=== PATIENT | female | born 1990 | race Caucasian/White ===

== ENCOUNTER 2020-09-28 00:09 | Inpatient (IN) | payer OTHER ==
[2020-09-28 01:25] LABS: Anisocytosis Slight; Basophils % (A) 1 %; Eosinophils % (A) 1 %; HCT 25.3 % (34.0-46.0); HGB 8.8 gm/dL (11.4-16.0); Hypochromasia Slight; Lymphocytes # (A) 0.9 k/uL (1.0-4.8); Lymphocytes % (A) 22 %; MCH 36.5 pg (25.0-35.0); MCHC 34.9 g/dL (31.0-37.0); MCV 104.6 fL (80.0-100.0); Macrocytosis Moderate; Mean Platelet Volume 8.6; Monocytes # (A) 0.4 k/uL (0-1.0); Monocytes % (A) 9 %; Neutrophils # (A) 2.8 k/uL (1.3-7.7); Neutrophils % (A) 65 %; Platelet Count 174 k/uL (150-450); RBC 2.42 m/uL (3.80-5.40); RDW 17.7 % (11.5-15.5); WBC 4.4 k/uL (3.8-10.6)
[2020-09-28 01:37] LABS: Potassium 3.9 mmol/L (3.5-5.1)
[2020-09-28 01:38] LABS: ALT 34 U/L (4-34); AST 220 U/L (14-36); African American GFR (CKD) >90 (>60 ml/min/1.73 sqM); Albumin 3.2 g/dL (3.5-5.0); Alkaline Phosphatase 215 U/L (38-126); Amylase 70 U/L (30-110); Anion Gap 7 mmol/L; Blood Urea Nitrogen 6 mg/dL (7-17); Calcium 8.7 mg/dL (8.4-10.2); Carbon Dioxide 24 mmol/L (22-30); Chloride 105 mmol/L (98-107); Glucose 108 mg/dL (74-99); Lipase 348 U/L (23-300); Non-African American GFR(CKD) >90 (>60 ml/min/1.73 sqM); Sodium 136 mmol/L (137-145); Total Bilirubin 4.7 mg/dL (0.2-1.3); Total Protein 6.3 g/dL (6.3-8.2)
[2020-09-28 01:42] LABS: INR 1.5 (<1.2); Partial Thromboplastin Time 34.5 sec (22.0-30.0)
[2020-09-28 01:47] LABS: Appearance,Urine Cloudy (Clear); Bacteria,Urine Rare /hpf; Bilirubin,Urine 1+ (Negative); Blood,Urine Negative (Negative); Calcium Oxalate Crystals,Urine Few /hpf; Color,Urine Dark Yellow; Glucose,Urine (UA) Negative (Negative); Ketones,Urine Negative (Negative); Leukocyte Esterase,Urine Trace (Negative); Mucus,Urine Few /hpf; Nitrite,Urine Negative (Negative); PH, Urine 6.5 (5.0-8.0); Protein,Urine Trace (Negative); RBC,Urine 5 /hpf (0-5); Specific Gravity,Urine 1.023 (1.001-1.035); Squamous Epithelial Cell,Urine 2 /hpf (0-4); WBC,Urine 10 /hpf (0-5)
--- NOTE | 2020-09-28 02:03 | XR ---
EXAM: XR Chest, 2 Views CLINICAL HISTORY: ITS.REASON XR Reason: dyspnea TECHNIQUE: Frontal and lateral views of the chest. COMPARISON: No relevant prior studies available. FINDINGS: Lungs: See below. Pleural space: There is slight blunting of the left costophrenic angle which may represent small left pleural effusion and questionable left basilar infiltrate. No pneumothorax. Heart: Unremarkable. No cardiomegaly. Mediastinum: Unremarkable. Bones/joints: Unremarkable. IMPRESSION: There is slight blunting of the left costophrenic angle which may represent small left pleural effusion and questionable left basilar infiltrate.
--- NOTE | 2020-09-28 02:07 | US ---
EXAM: US Abdomen Limited, Gallbladder CLINICAL HISTORY: ITS.REASON US Reason: jaundice new onset TECHNIQUE: Real-time ultrasound of the right upper quadrant with image documentation. COMPARISON: No relevant prior studies available. FINDINGS: Liver: Fatty infiltration of the liver and hepatomegaly with the liver measuring 20 cm craniocaudad. No intrahepatic biliary duct dilation is seen. Gallbladder: The gallbladder is fully distended but nondilated. There is a layer of sludge in the dependent portion of the gallbladder filling 60%. No calcified stones are identified. There is mild gallbladder wall thickening suggesting cholecystitis. Common bile duct: The common bile duct is obscured. Pancreas: The visualized portion of the pancreas is unremarkable. Right kidney: The right kidney measures 11.9 cm with normal appearance. No hydronephrosis. IMPRESSION: 1. The gallbladder is fully distended but nondilated. There is a layer of sludge in the dependent portion of the gallbladder filling 60%. No calcified stones are identified. There is mild gallbladder wall thickening suggesting cholecystitis. 2. Fatty infiltration of the liver and hepatomegaly with the liver measuring 20 cm craniocaudad. No intrahepatic biliary duct dilation is seen.
[2020-09-28] MEDS ORDERED: THIAMINE 100 MG/ML 2 ML VIAL IM STA (02:18)
[2020-09-28] MEDS ORDERED: LORazepam 2 MG/ML INJ IV PRN ×3 (02:18)
--- NOTE | 2020-09-28 02:32 | ED ---
Abdominal Pain HPI - General Chief Complaint: Abdominal Pain Stated Complaint: Abdominal pain Time Seen by Provider: 09/28/20 00:32 Source: patient Mode of arrival: EMS Limitations: no limitations - History of Present Illness Initial Comments: 30-year-old female presenting to the emergency department today for chief complaint of jaundice right upper quadrant abdominal pain. Patient states that she has been at [facility] for 11 days for a call detox. She states she was appears to drinking for a few weeks ago today but prior to that half gallon a d ay for months and prior to that about a fifth a day for "years". Patient states that for the past day she has had RUQ pain and noticed she looked yellow. She dneies fevers, vomiting, diarrhea. but admits to nausea. Patient denies blood stools/vomit or dark stools. Patient denies chest pain, dyspnea. Patient states she does feel her abdomen is distended and both of her legs are swollen. SHe denies additional complaints. Upon arrival patient appears well nontoxic in no acute distress. - Related Data Home Medications Medication Instructions Recorded Confirmed Calcium/Magnesium Tab 2 tab PO TID PRN 09/28/20 09/28/20 Chlorpheniramine Maleate 4 mg PO Q4H PRN 09/28/20 09/28/20 [Chlor-Trimeton] Ferrous Gluconate 324 mg PO DAILY@0600 09/28/20 09/28/20 LORazepam [Ativan] See Taper PO DIRECTED PRN 09/28/20 09/28/20 OLANZapine [ZyPREXA] 2.5 mg PO HS 09/28/20 09/28/20 ondansetron HCL [Zofran] 8 mg PO Q8HR PRN 09/28/20 09/28/20 traZODone HCL 50 - 150 mg PO HS 09/28/20 09/28/20 Allergies Allergy/AdvReac Type Severity Reaction Status Date / Time No Known Allergies Allergy Verified 09/28/20 06:58 Review of Systems ROS Statement: Those systems with pertinent positive or pertinent negative responses have been documented in the HPI. ROS Other: All systems not noted in ROS Statement are negative. Past Medical History Past Medical History: Liver Disease Additional Past Medical History / Comment(s): etoh abuse, History of Any Multi-Drug Resistant Organisms: None Reported Past Surgical History: Orthopedic Surgery Past Psychological History: Anxiety, Depression Smoking Status: Current every day smoker Past Alcohol Use History: Abuse, Daily Past Drug Use History: None Reported - Past Family History Father Family Medical History: Coronary Artery Disease (CAD), Hyperlipidemia, Myocardial Infarction ([place]) Additional Family Medical History / Comment(s): Father at the age of 55 yrs from a [place] Mother Family Medical History: No Reported History Additional Family Medical History / Comment(s): Mother is healthy General Exam - General Exam Comments Initial Comments: General: The patient is awake and alert, in no distress Eye: +3 mm pupils are equal, round and reactive to light, extra-ocular movements are intact. No nystagmus. There is normal conjunctiva bilaterally.signs of icterus. Ears, nose, mouth and throat: There are moist mucous membranes and no oral lesions. Neck: The neck is supple, there is no tenderness or JVD. Cardiovascular: There is a regular rate and rhythm. No murmur, rub or gallop is appreciated. Respiratory: Lungs are clear to auscultation, respirations are non-labored, breath sounds are equal. No wheezes, stridor, rales, or rhonchi. Gastrointestinal: Soft, non-distended, tender epigastric and RUQ portions of the abdomen, abdomen is without masses or organomegaly noted. There is no rebound or guarding prese Musculoskeletal: Normal ROM, no tenderness. Strength 5/5. Sensation intact. Radial and DP pulses equal bilaterally 2+. Neurological: A&O x 3. CN II-XII intact grossly, There are no obvious motor or sensory deficits. Coordination appears grossly intact. Speech is normal. Skin: Skin is warm and dry and no rashes or lesions are noted. Psychiatric: Cooperative, appropriate mood & affect, normal judgment. Limitations: no limitations Course Vital Signs 09/28/20 09/28/20 00:14 02:15 Temperature 98.8 F Pulse Rate 117 H 108 H Respiratory 18 18 Rate Blood Pressure 114/57 106/51 O2 Sat by Pulse 100 98 Oximetry Medical Decision Making - Medical Decision Making 30-year-old female presenting for right upper quadrant pain and jaundice. Patient has cholecystitis on ultrasound. As well as transaminitis increased bilirubin. Patient does not appear toxic. no vomiting. no hypotension. patient does have pitting edema and suspected cirrhosis. patietn case discussed with Dr. Mensah who is agreeable to initiated abx, admitting patient for surgical consultation. - Lab Data Result diagrams: 09/28/20 01:00 09/28/20 01:00 Lab Results 09/28/20 09/28/20 09/28/20 Range/Units 01:00 01:00 01:00 WBC 4.4 (3.8-10.6) k/uL RBC 2.42 L (3.80-5.40) m/uL Hgb 8.8 L (11.4-16.0) gm/dL Hct 25.3 L (34.0-46.0) % MCV 104.6 H (80.0-100.0) fL MCH 36.5 H (25.0-35.0) pg MCHC 34.9 (31.0-37.0) g/dL RDW 17.7 H (11.5-15.5) % Plt Count 174 (150-450) k/uL MPV 8.6 Neutrophils % 65 % Lymphocytes % 22 % Monocytes % 9 % Eosinophils % 1 % Basophils % 1 % Neutrophils # 2.8 (1.3-7.7) k/uL Lymphocytes # 0.9 L (1.0-4.8) k/uL Monocytes # 0.4 (0-1.0) k/uL Eosinophils # 0.0 (0-0.7) k/uL Basophils # 0.0 (0-0.2) k/uL Hypochromasia Slight Anisocytosis Slight Macrocytosis Moderate PT 15.0 H (9.0-12.0) sec INR 1.5 H (<1.2) APTT 34.5 H (22.0-30.0) sec Sodium (137-145) mmol/L Potassium (3.5-5.1) mmol/L Chloride (98-107) mmol/L Carbon Dioxide (22-30) mmol/L Anion Gap mmol/L BUN (7-17) mg/dL Creatinine (0.52-1.04) mg/dL Est GFR (CKD-EPI)AfAm (>60 ml/min/1.73 sqM) Est GFR (CKD-EPI)NonAf (>60 ml/min/1.73 sqM) Glucose (74-99) mg/dL Plasma Lactic Acid Ghanshyam (0.7-2.0) mmol/L Calcium (8.4-10.2) mg/dL Magnesium (1.6-2.3) mg/dL Total Bilirubin (0.2-1.3) mg/dL AST (14-36) U/L ALT (4-34) U/L Alkaline Phosphatase (38-126) U/L Troponin I (0.000-0.034) ng/mL NT-Pro-B Natriuret Pep pg/mL Total Protein (6.3-8.2) g/dL Albumin (3.5-5.0) g/dL Amylase (30-110) U/L Lipase (23-300) U/L Urine Color Dark Yellow Urine Appearance Cloudy H (Clear) Urine pH 6.5 (5.0-8.0) Ur Specific [place] 1.023 (1.001-1.035) Urine Protein Trace H (Negative) Urine Glucose (UA) Negative (Negative) Urine Ketones Negative (Negative) Urine Blood Negative (Negative) Urine Nitrite Negative (Negative) Urine Bilirubin 1+ H (Negative) Urine Urobilinogen 2.0 (<2.0) mg/dL Ur Leukocyte Esterase Trace H (Negative) Urine RBC 5 (0-5) /hpf Urine WBC 10 H (0-5) /hpf Ur Squamous Epith Cells 2 (0-4) /hpf Calcium Oxalate Crystal Few H (None) /hpf Urine Bacteria Rare H (None) /hpf Urine Mucus Few H (None) /hpf Hepatitis A IgM Ab (Non-Reactive) Hep Bs Antigen (Non-Reactive) Hep B Core IgM Ab (Non-Reactive) Hep C IgG Ab (Non-Reactive) 09/28/20 09/28/20 09/28/20 Range/Units 01:00 01:00 01:00 WBC (3.8-10.6) k/uL RBC (3.80-5.40) m/uL Hgb (11.4-16.0) gm/dL Hct (34.0-46.0) % MCV (80.0-100.0) fL MCH (25.0-35.0) pg MCHC (31.0-37.0) g/dL RDW (11.5-15.5) % Plt Count (150-450) k/uL MPV Neutrophils % % Lymphocytes % % Monocytes % % Eosinophils % % Basophils % % Neutrophils # (1.3-7.7) k/uL Lymphocytes # (1.0-4.8) k/uL Monocytes # (0-1.0) k/uL Eosinophils # (0-0.7) k/uL Basophils # (0-0.2) k/uL Hypochromasia Anisocytosis Macrocytosis PT (9.0-12.0) sec INR (<1.2) APTT (22.0-30.0) sec Sodium 136 L (137-145) mmol/L Potassium 3.9 (3.5-5.1) mmol/L Chloride 105 (98-107) mmol/L Carbon Dioxide 24 (22-30) mmol/L Anion Gap 7 mmol/L BUN 6 L (7-17) mg/dL Creatinine 0.55 (0.52-1.04) mg/dL Est GFR (CKD-EPI)AfAm >90 (>60 ml/min/1.73 sqM) Est GFR (CKD-EPI)NonAf >90 (>60 ml/min/1.73 sqM) Glucose 108 H (74-99) mg/dL Plasma Lactic Acid Ghanshyam 1.2 (0.7-2.0) mmol/L Calcium 8.7 (8.4-10.2) mg/dL Magnesium (1.6-2.3) mg/dL Total Bilirubin 4.7 H (0.2-1.3) mg/dL AST 220 H (14-36) U/L ALT 34 (4-34) U/L Alkaline Phosphatase 215 H (38-126) U/L Troponin I <0.012 (0.000-0.034) ng/mL NT-Pro-B Natriuret Pep pg/mL Total Protein 6.3 (6.3-8.2) g/dL Albumin 3.2 L (3.5-5.0) g/dL Amylase 70 (30-110) U/L Lipase 348 H (23-300) U/L Urine Color Urine Appearance (Clear) Urine pH (5.0-8.0) Ur Specific B[place] (1.001-1.035) Urine Protein (Negative) Urine Glucose (UA) (Negative) Urine Ketones (Negative) Urine Blood (Negative) Urine Nitrite (Negative) Urine Bilirubin (Negative) Urine Urobilinogen (<2.0) mg/dL Ur Leukocyte Esterase (Negative) Urine RBC (0-5) /hpf Urine WBC (0-5) /hpf Ur Squamous Epith Cells (0-4) /hpf Calcium Oxalate Crystal (None) /hpf Urine Bacteria (None) /hpf Urine Mucus (None) /hpf Hepatitis A IgM Ab (Non-Reactive) Hep Bs Antigen (Non-Reactive) Hep B Core IgM Ab (Non-Reactive) Hep C IgG Ab (Non-Reactive) 09/28/20 09/28/20 09/28/20 Range/Units 01:00 01:00 01:00 WBC (3.8-10.6) k/uL RBC (3.80-5.40) m/uL Hgb (11.4-16.0) gm/dL Hct (34.0-46.0) % MCV (80.0-100.0) fL MCH (25.0-35.0) pg MCHC (31.0-37.0) g/dL RDW (11.5-15.5) % Plt Count (150-450) k/uL MPV Neutrophils % % Lymphocytes % % Monocytes % % Eosinophils % % Basophils % % Neutrophils # (1.3-7.7) k/uL Lymphocytes # (1.0-4.8) k/uL Monocytes # (0-1.0) k/uL Eosinophils # (0-0.7) k/uL Basophils # (0-0.2) k/uL Hypochromasia Anisocytosis Macrocytosis PT (9.0-12.0) sec INR (<1.2) APTT (22.0-30.0) sec Sodium (137-145) mmol/L Potassium (3.5-5.1) mmol/L Chloride (98-107) mmol/L Carbon Dioxide (22-30) mmol/L Anion Gap mmol/L BUN (7-17) mg/dL Creatinine (0.52-1.04) mg/dL Est GFR (CKD-EPI)AfAm (>60 ml/min/1.73 sqM) Est GFR (CKD-EPI)NonAf (>60 ml/min/1.73 sqM) Glucose (74-99) mg/dL Plasma Lactic Acid Ghanshyam (0.7-2.0) mmol/L Calcium (8.4-10.2) mg/dL Magnesium 1.9 (1.6-2.3) mg/dL Total Bilirubin (0.2-1.3) mg/dL AST (14-36) U/L ALT (4-34) U/L Alkaline Phosphatase (38-126) U/L Troponin I (0.000-0.034) ng/mL NT-Pro-B Natriuret Pep 226 pg/mL Total Protein (6.3-8.2) g/dL Albumin (3.5-5.0) g/dL Amylase (30-110) U/L Lipase (23-300) U/L Urine Color Urine Appearance (Clear) Urine pH (5.0-8.0) Ur Specific B[place] (1.001-1.035) Urine Protein (Negative) Urine Glucose (UA) (Negative) Urine Ketones (Negative) Urine Blood (Negative) Urine Nitrite (Negative) Urine Bilirubin (Negative) Urine Urobilinogen (<2.0) mg/dL Ur Leukocyte Esterase (Negative) Urine RBC (0-5) /hpf Urine WBC (0-5) /hpf Ur Squamous Epith Cells (0-4) /hpf Calcium Oxalate Crystal (None) /hpf Urine Bacteria (None) /hpf Urine Mucus (None) /hpf Hepatitis A IgM Ab Non-Reactive (Non-Reactive) Hep Bs Antigen Non-Reactive (Non-Reactive) Hep B Core IgM Ab Non-Reactive (Non-Reactive) Hep C IgG Ab Non-Reactive (Non-Reactive) Disposition Clinical Impression: Cirrhosis, Cholecystitis, Edema, Abdominal pain, Hepatitis Disposition: ADMITTED IP TO THIS HOSP Condition: Stable Is patient prescribed a controlled substance at d/c from ED?: No Time of Disposition: Decision to Admit Reason: Admit from EC Decision Date: 09/28/20 Decision Time: :32
[2020-09-28] MEDS: PIPERACILLIN-TAZOBACTAM 3.375 GM in SODIUM CHLORIDE 0.9% 100 ML IVPB SCH ×3 (02:41→17:29)
[2020-09-28] MEDS ORDERED: NALOXONE 0.4 MG/ML 1 ML VIAL IV PRN (03:03)
[2020-09-28] MEDS: KETOROLAC 15 MG/ML 1 ML VIAL IVP PRN ×2 (13:08→19:15)
[2020-09-28] MEDS: NICOTINE 14MG/24HR PATCH TRANSDERM SCH (13:08)
[2020-09-28 13:46] LABS: Hepatitis A Antibody IgM Non-Reactive (Non-Reactive); Hepatitis B Core IgM Non-Reactive (Non-Reactive); Hepatitis B Surface Antigen Non-Reactive (Non-Reactive); Hepatitis C IgG Antibody Non-Reactive (Non-Reactive)
--- NOTE | 2020-09-28 14:20 | P.GSCN ---
History of Present Illness Consult date: 09/28/20 History of present illness: CHIEF COMPLAINT: Abdominal pain HISTORY OF PRESENT ILLNESS: This is a 30-year-old female with a known past medical history of alcohol abuse, liver disease, nicotine dependence, anxiety and depression. Patient presents to emergency room with complaints of right upper quadrant abdominal pain over the last 2 months. She reports that the pain is worse after eating. The pain yesterday became very severe that she couldn't move. The pain radiates down into the lower abdomen and wraps around to the the right and to the left abductor abdomen. She had been having nausea and vomiting. But this had resolved after she stopped drinking alcohol 11 a days ago. She's been at [facility] for detox and rehab. Patient has noticed that her stools have been becoming yellow and she's been having dark urine. She denies any fever. She does admit to having chills. She had gallbladder ultrasound that showed that the gallbladder is fully distended. There is a layer of sludge in the dependent portion of the gallbladder filling 60%. No calcified stones identified. There is mild gallbladder wall thickening suggesting cystitis. Fatty infiltration of the liver and hepatomegaly with the liver measuring 20 cm. No intrahepatic biliary duct dilation is seen. Patient's total bilirubin was elevated at 4.7. PAST MEDICAL HISTORY: See list. PAST SURGICAL HISTORY: See list. MEDICATIONS: See list. ALLERGIES: See list. SOCIAL HISTORY: No illicit drug use. REVIEW OF SYSTEMS: CONSTITUTIONAL: Denies fever or chills. HEENT: Denies blurred vision, vision changes, or eye pain. Denies hemoptysis CARDIOVASCULAR: Denies chest pain or pressure. RESPIRATORY: No shortness of breath. GASTROINTESTINAL: See HPI for pertinent findings HEMATOLOGIC: Denies bleeding disorders. GENITOURINARY: Denies any blood in urine or increased urinary frequency. SKIN: Denies pruitis. Denies rash. PHYSICAL EXAM: VITAL SIGNS: Reviewed GENERAL: Well-developed in no acute distress. HEENT: No sclera icterus. Extraocular movements grossly intact. Moist buccal mucosa. Head is atraumatic, normocephalic. No nasal drainage. ABDOMEN: Soft. Nondistended. Tenderness with palpation of the right upper quadrant NEUROLOGIC: Alert and oriented. Cranial nerves II through XII grossly intact. LABORATORY DATA: WBC 4.4 Hgb 8.8 platelets 174 INR 1.5 sodium 136 BUN 6 creatinine 0.55 glucose 108 lactic 1.2 Total bilirubin 4.7 AST 220 ALT 34 alk phos 215 lipase 348 Covid Not detected hepatitis panel negative IMAGING: gallbladder ultrasound that showed that the gallbladder is fully distended. There is a layer of sludge in the dependent portion of the gallbladder filling 60%. No calcified stones identified. There is mild gallbladder wall thickening suggesting cystitis. Fatty infiltration of the liver and hepatomegaly with the liver measuring 20 cm. No intrahepatic biliary duct dilation is seen. ASSESSMENT: 1. Acute cholecystitis 2. Hyperbilirubinemia 3. History of alcohol abuse 4. History of liver disease PLAN: -Patient is scheduled for laparoscopic cholecystectomy tomorrow 09/29/[address] Engle -Patient can have clear liquid diet today and then nothing by mouth after midnight -Continue IV antibiotics -Continue IV fluids -Continue pain medication as needed Thank you for this consultation Physician Systems Architecture Analyst note has been reviewed by physician. Signing provider agrees with the documented findings, assessment, and plan of care. Past Medical History Past Medical History: GERD/Reflux, Liver Disease Additional Past Medical History / Comment(s): ETOH abuse/pt is currently at [facility] and has not drank in 11 days, ETOH withdrawals/headac hes/vomiting/tremors, frequent diarrhea, lower leg/pedal edema past 1.5 months, UTIs History of Any Multi-Drug Resistant Organisms: None Reported Past Surgical History: Orthopedic Surgery Additional Past Surgical History / Comment(s): R foot fractured calcaneous with reconstructive surgery/hardware, R femur fracture/hardware. Smoking Status: Current every day smoker - Past Family History Father Family Medical History: Coronary Artery Disease (CAD), Hyperlipidemia, Myocardial Infarction ([place]) Additional Family Medical History / Comment(s): Father at the age of 55 yrs from a [place] Mother Family Medical History: No Reported History Additional Family Medical History / Comment(s): Mother is healthy Medications and Allergies Home Medications Medication Instructions Recorded Confirmed Type Calcium/Magnesium Tab 2 tab PO TID PRN 09/28/20 09/28/20 History Chlorpheniramine Maleate 4 mg PO Q4H PRN 09/28/20 09/28/20 History [Chlor-Trimeton] Ferrous Gluconate 324 mg PO DAILY@0600 09/28/20 09/28/20 History LORazepam [Ativan] See Taper PO DIRECTED PRN 09/28/20 09/28/20 History OLANZapine [ZyPREXA] 2.5 mg PO HS 09/28/20 09/28/20 History ondansetron HCL [Zofran] 8 mg PO Q8HR PRN 09/28/20 09/28/20 History traZODone HCL 50 - 150 mg PO HS 09/28/20 09/28/20 History Allergies Allergy/AdvReac Type Severity Reaction Status Date / Time No Known Allergies Allergy Verified 09/28/20 06:58 Surgical - Exam Vital Signs Temp Pulse Resp BP Pulse Ox 98.8 F 117 H 18 114/57 100 09/28/20 00:14 09/28/20 00:14 09/28/20 00:14 09/28/20 00:14 09/28/20 00:14 Results - Labs 09/28/20 01:00 09/28/20 01:00 Abnormal Lab Results - Last 24 Hours (Table) 09/28/20 09/28/20 09/28/20 Range/Units 01:00 01:00 01:00 RBC 2.42 L (3.80-5.40) m/uL Hgb 8.8 L (11.4-16.0) gm/dL Hct 25.3 L (34.0-46.0) % MCV 104.6 H (80.0-100.0) fL MCH 36.5 H (25.0-35.0) pg RDW 17.7 H (11.5-15.5) % Lymphocytes # 0.9 L (1.0-4.8) k/uL PT 15.0 H (9.0-12.0) sec INR 1.5 H (<1.2) APTT 34.5 H (22.0-30.0) sec Sodium (137-145) mmol/L BUN (7-17) mg/dL Glucose (74-99) mg/dL Total Bilirubin (0.2-1.3) mg/dL AST (14-36) U/L Alkaline Phosphatase (38-126) U/L Albumin (3.5-5.0) g/dL Lipase (23-300) U/L Urine Appearance Cloudy H (Clear) Urine Protein Trace H (Negative) Urine Bilirubin 1+ H (Negative) Ur Leukocyte Esterase Trace H (Negative) Urine WBC 10 H (0-5) /hpf Calcium Oxalate Crystal Few H (None) /hpf Urine Bacteria Rare H (None) /hpf Urine Mucus Few H (None) /hpf 09/28/20 Range/Units 01:00 RBC (3.80-5.40) m/uL Hgb (11.4-16.0) gm/dL Hct (34.0-46.0) % MCV (80.0-100.0) fL MCH (25.0-35.0) pg RDW (11.5-15.5) % Lymphocytes # (1.0-4.8) k/uL PT (9.0-12.0) sec INR (<1.2) APTT (22.0-30.0) sec Sodium 136 L (137-145) mmol/L BUN 6 L (7-17) mg/dL Glucose 108 H (74-99) mg/dL Total Bilirubin 4.7 H (0.2-1.3) mg/dL AST 220 H (14-36) U/L Alkaline Phosphatase 215 H (38-126) U/L Albumin 3.2 L (3.5-5.0) g/dL Lipase 348 H (23-300) U/L Urine Appearance (Clear) Urine Protein (Negative) Urine Bilirubin (Negative) Ur Leukocyte Esterase (Negative) Urine WBC (0-5) /hpf Calcium Oxalate Crystal (None) /hpf Urine Bacteria (None) /hpf Urine Mucus (None) /hpf Diabetes panel 09/28/20 Range/Units 01:00 Sodium 136 L (137-145) mmol/L Potassium 3.9 (3.5-5.1) mmol/L Chloride 105 (98-107) mmol/L Carbon Dioxide 24 (22-30) mmol/L BUN 6 L (7-17) mg/dL Creatinine 0.55 (0.52-1.04) mg/dL Glucose 108 H (74-99) mg/dL Calcium 8.7 (8.4-10.2) mg/dL AST 220 H (14-36) U/L ALT 34 (4-34) U/L Alkaline Phosphatase 215 H (38-126) U/L Total Protein 6.3 (6.3-8.2) g/dL Albumin 3.2 L (3.5-5.0) g/dL Calcium panel 09/28/20 Range/Units 01:00 Calcium 8.7 (8.4-10.2) mg/dL Albumin 3.2 L (3.5-5.0) g/dL Pituitary panel 09/28/20 Range/Units 01:00 Sodium 136 L (137-145) mmol/L Potassium 3.9 (3.5-5.1) mmol/L Chloride 105 (98-107) mmol/L Carbon Dioxide 24 (22-30) mmol/L BUN 6 L (7-17) mg/dL Creatinine 0.55 (0.52-1.04) mg/dL Glucose 108 H (74-99) mg/dL Calcium 8.7 (8.4-10.2) mg/dL Adrenal panel 09/28/20 Range/Units 01:00 Sodium 136 L (137-145) mmol/L Potassium 3.9 (3.5-5.1) mmol/L Chloride 105 (98-107) mmol/L Carbon Dioxide 24 (22-30) mmol/L BUN 6 L (7-17) mg/dL Creatinine 0.55 (0.52-1.04) mg/dL Glucose 108 H (74-99) mg/dL Calcium 8.7 (8.4-10.2) mg/dL Total Bilirubin 4.7 H (0.2-1.3) mg/dL AST 220 H (14-36) U/L ALT 34 (4-34) U/L Alkaline Phosphatase 215 H (38-126) U/L Total Protein 6.3 (6.3-8.2) g/dL Albumin 3.2 L (3.5-5.0) g/dL
[2020-09-28] MEDS: SODIUM CHLORIDE 0.9% 1,000 ML IV SCH (16:24)
[2020-09-28] MEDS ORDERED: THIAMINE 100 MG TAB PO SCH (17:30)
--- NOTE | 2020-09-28 17:56 | P.HPIM ---
History of Present Illness H&P Date: 09/28/20 Chief Complaint: Abdominal pain Ms. Nickerson is a 30-year-old female with a past medical history of alcohol use disorder, cirrhosis, anxiety and depression, nicotine dependence coming into the emergency Department with a chief complaint of epigastric and right upper quadrant abdominal pain for the past 1-2 days. Patient states that she has been having the abdominal pain for the past 2 months but for the past couple of days has become more severe. She states that the pain radiates all around her abdomen to the back and has been associated with nausea and some vomiting. Patient states she has history of alcohol use but quit 11 days back and is undergoing rehabilitation. She is at [facility] for detox. She also complained of yellowish discoloration of her eyes and dark urine for the past couple of months. She said when she was drinking she was drinking almost 1/5 of vodka every day. Patient has history of anxiety and depression. She denies having any suicidal ideation or homicidal ideation currently. Patient denied having any chest pain or difficulty in breathing. No palpitations, syncopal episodes. She denies having any weakness of her extremities. No dysuria or hematuria. No chronic low back pain. Patient denied having any fevers chills or rigors. No recent use of antibiotics. No history of sick contacts. In the ER had an ultrasound of the abdomen that was showing full E distended gallbladder with sludge and mild gallbladder wall thickening suggestive of cholecystitis. Fatty infiltration of the liver and hepatomegaly with liver measuring 20 cm. EKG done in the ER showing sinus tachycardia. Chest x-ray slight blunting of the left costophrenic angle suggesting small left pleural effusion and questionable left basilar infiltrate. On reviewing his labs white count of 4.4, hemoglobin 8.8, MCV 104.6, platelets 174. PT 15, INR 1.5. Sodium 136, progression And 11 Affect, Bicarbonate 24, BUN 6, Creatinine 0.55. Lipase 348, AST 220, AST 34, Total Bilirubin 4.7. Review of Systems REVIEW OF SYSTEMS: CONSTITUTIONAL: No fever chills or rigors. HEENT: No recent visual problems or hearing problems. Denied any sore throat. CARDIOVASCULAR: No chest pain, orthopnea, PND, no palpitations, no syncope. PULMONARY: No cough or difficulty in breathing GASTROINTESTINAL: As per HPI NEUROLOGICAL: No headaches, no weakness, no numbness. HEMATOLOGICAL: Denies any bleeding or petechiae. No bleeding per rectum or in her urine. GENITOURINARY: Denies any burning micturition, frequency, or urgency. MUSCULOSKELETAL/RHEUMATOLOGICAL: Denies any joint pain, swelling, or any muscle pain. ENDOCRINE: Denies any polyuria or polydipsia. The rest of the 14-point review of systems is negative. Past Medical History Past Medical History: GERD/Reflux, Liver Disease Additional Past Medical History / Comment(s): ETOH abuse/pt is currently at [facility] and has not drank in 11 days, ETOH withdrawals/headaches/vomiting/tremors, frequent diarrhea, lower leg/pedal edema past 1.5 months, UTIs History of Any Multi-Drug Resistant Organisms: None Reported Past Surgical History: Orthopedic Surgery Additional Past Surgical History / Comment(s): R foot fractured calcaneous with reconstructive surgery/hardware, R femur fracture/hardware. Smoking Status: Current every day smoker - Past Family History Father Family Medical History: Coronary Artery Disease (CAD), Hyperlipidemia, Myoc ardial Infarction ([place]) Additional Family Medical History / Comment(s): Father at the age of 55 yrs from a [place] Mother Family Medical History: No Reported History Additional Family Medical History / Comment(s): Mother is healthy Medications and Allergies Home Medications Medication Instructions Recorded Confirmed Type Calcium/Magnesium Tab 2 tab PO TID PRN 09/28/20 09/28/20 History Chlorpheniramine Maleate 4 mg PO Q4H PRN 09/28/20 09/28/20 History [Chlor-Trimeton] Ferrous Gluconate 324 mg PO DAILY@0600 09/28/20 09/28/20 History LORazepam [Ativan] See Taper PO DIRECTED PRN 09/28/20 09/28/20 History OLANZapine [ZyPREXA] 2.5 mg PO HS 09/28/20 09/28/20 History ondansetron HCL [Zofran] 8 mg PO Q8HR PRN 09/28/20 09/28/20 History traZODone HCL 50 - 150 mg PO HS 09/28/20 09/28/20 History Allergies Allergy/AdvReac Type Severity Reaction Status Date / Time No Known Allergies Allergy Verified 09/28/20 06:58 Physical Exam Vitals: Vital Signs Temp Pulse Resp BP Pulse Ox 09/28/20 02:15 108 H 18 106/51 98 09/28/20 00:14 98.8 F 117 H 18 114/57 100 Intake and Output 09/28/20 09/28/20 09/28/20 06:59 14:59 22:59 Other: Weight 99.79 kg 99.79 kg PHYSICAL EXAMINATION: GENERAL: The patient is alert and oriented x3, not in any acute distress. Well developed, well nourished. HEENT: Pupils are round and equally reacting to light. EOMI. No scleral icterus. No conjunctival pallor. Positive for icterus CARDIOVASCULAR: S1 and S2 present. No murmurs, rubs, or gallops. PULMONARY: Chest is clear to auscultation, no wheezing or crackles. ABDOMEN: Abdomen is soft. Mild tenderness in the epigastric and right upper quadrant. Normal bowel sounds. Organomegaly difficult to appreciate due to obese body habitus MUSCULOSKELETAL: No joint swelling or deformity. EXTREMITIES: No cyanosis, clubbing, or pedal edema. NEUROLOGICAL: Gross neurological examination did not reveal any focal deficits. SKIN: No rashes. Results CBC & Chem 7: 09/28/20 01:00 09/28/20 01:00 Labs: Abnormal Lab Results - Last 24 Hours (Table) 09/28/20 09/28/20 09/28/20 Range/Units 01:00 01:00 01:00 RBC 2.42 L (3.80-5.40) m/uL Hgb 8.8 L (11.4-16.0) gm/dL Hct 25.3 L (34.0-46.0) % MCV 104.6 H (80.0-100.0) fL MCH 36.5 H (25.0-35.0) pg RDW 17.7 H (11.5-15.5) % Lymphocytes # 0.9 L (1.0-4.8) k/uL PT 15.0 H (9.0-12.0) sec INR 1.5 H (<1.2) APTT 34.5 H (22.0-30.0) sec Sodium (137-145) mmol/L BUN (7-17) mg/dL Glucose (74-99) mg/dL Total Bilirubin (0.2-1.3) mg/dL AST (14-36) U/L Alkaline Phosphatase (38-126) U/L Albumin (3.5-5.0) g/dL Lipase (23-300) U/L Urine Appearance Cloudy H (Clear) Urine Protein Trace H (Negative) Urine Bilirubin 1+ H (Negative) Ur Leukocyte Esterase Trace H (Negative) Urine WBC 10 H (0-5) /hpf Calcium Oxalate Crystal Few H (None) /hpf Urine Bacteria Rare H (None) /hpf Urine Mucus Few H (None) /hpf 09/28/20 Range/Units 01:00 RBC (3.80-5.40) m/uL Hgb (11.4-16.0) gm/dL Hct (34.0-46.0) % MCV (80.0-100.0) fL MCH (25.0-35.0) pg RDW (11.5-15.5) % Lymphocytes # (1.0-4.8) k/uL PT (9.0-12.0) sec INR (<1.2) APTT (22.0-30.0) sec Sodium 136 L (137-145) mmol/L BUN 6 L (7-17) mg/dL Glucose 108 H (74-99) mg/dL Total Bilirubin 4.7 H (0.2-1.3) mg/dL AST 220 H (14-36) U/L Alkaline Phosphatase 215 H (38-126) U/L Albumin 3.2 L (3.5-5.0) g/dL Lipase 348 H (23-300) U/L Urine Appearance (Clear) Urine Protein (Negative) Urine Bilirubin (Negative) Ur Leukocyte Esterase (Negative) Urine WBC (0-5) /hpf Calcium Oxalate Crystal (None) /hpf Urine Bacteria (None) /hpf Urine Mucus (None) /hpf Thrombosis Risk Factor Assmnt - Choose All That Apply Any of the Below Risk Factors Present?: Yes Each Factor Represents 1 point: Obesity (BMI >25), Swollen legs (current) Other Risk Factors: No Other congenital or acquired thrombophilia - If yes, enter type in comment: No Thrombosis Risk Factor Assessment Total Risk Factor Score: 2 Thrombosis Risk Factor Assessment Level: Low Risk Assessment and Plan Assessment: ASSESSMENT Acute cholecystitis -significant for biliary sludge Transaminits Hyperbilirubinemia History of alcohol abuse History of liver cirrhosis Macrocytic anemia Elevated INR PLAN: Patient has been started on IV antibiotics in the form of Zosyn which will be continued for acute cholecystitis. She is board for laparoscopic cholecystectomy tomorrow by Dr. Engle. Keep nothing by mouth tonight. Continue with IV fluids. Discussed at length about the long-term complications of alcohol use, patient states that he has been clean for 11 days, encouraged her to continue quitting. Further recommendations to follow depending on the progress of the patient.
[2020-09-28] MEDS: OLANZapine 2.5 MG TAB PO SCH (20:01)
[2020-09-29] MEDS: KETOROLAC 15 MG/ML 1 ML VIAL IVP PRN ×3 (01:36→18:20)
[2020-09-29] MEDS: PIPERACILLIN-TAZOBACTAM 3.375 GM in SODIUM CHLORIDE 0.9% 100 ML IVPB SCH ×3 (01:38→18:20)
[2020-09-29] MEDS: SODIUM CHLORIDE 0.9% 1,000 ML IV SCH ×2 (06:01→18:23)
[2020-09-29 07:34] LABS: ALT 31 U/L (4-34); AST 205 U/L (14-36); African American GFR (CKD) >90 (>60 ml/min/1.73 sqM); Albumin 2.6 g/dL (3.5-5.0); Alkaline Phosphatase 159 U/L (38-126); Anion Gap 5 mmol/L; Blood Urea Nitrogen 5 mg/dL (7-17); Calcium 8.1 mg/dL (8.4-10.2); Carbon Dioxide 25 mmol/L (22-30); Chloride 109 mmol/L (98-107); Globulin 2.7 g/dL; Glucose 87 mg/dL (74-99); Non-African American GFR(CKD) >90 (>60 ml/min/1.73 sqM); Potassium 3.5 mmol/L (3.5-5.1); Sodium 139 mmol/L (137-145); Total Protein 5.3 g/dL (6.3-8.2)
[2020-09-29 07:49] LABS: INR 1.5 (<1.2); Prothrombin Time 15.5 sec (9.0-12.0)
[2020-09-29 07:59] LABS: Anisocytosis Slight; Basophils % (A) 0 %; Eosinophils % (A) 1 %; HCT 25.7 % (34.0-46.0); HGB 8.3 gm/dL (11.4-16.0); Hypochromasia Slight; Lymphocytes # (A) 0.8 k/uL (1.0-4.8); Lymphocytes % (A) 23 %; MCH 33.9 pg (25.0-35.0); MCHC 32.3 g/dL (31.0-37.0); MCV 105.1 fL (80.0-100.0); Macrocytosis Moderate; Mean Platelet Volume 9.7; Monocytes # (A) 0.3 k/uL (0-1.0); Monocytes % (A) 8 %; Neutrophils # (A) 2.1 k/uL (1.3-7.7); Neutrophils % (A) 64 %; Platelet Count 152 k/uL (150-450); RBC 2.44 m/uL (3.80-5.40); RDW 17.4 % (11.5-15.5); WBC 3.2 k/uL (3.8-10.6)
[2020-09-29] MEDS: NICOTINE 14MG/24HR PATCH TRANSDERM SCH (08:42)
[2020-09-29] MEDS ORDERED: PHYTONADIONE ORAL 5 MG/5 ML ORAL.SYRG PO STA (11:09)
--- NOTE | 2020-09-29 11:41 | P.CONS ---
History of Present Illness - Reason for Consult Consult date: 09/28/20 Bilirubin, abdominal pain Requesting physician: Karrie Magallon - Chief Complaint Abdominal pain - History of Present Illness 30-year-old female with a medical history significant for alcohol abuse, alcoholic liver disease, back to abuse and anxiety and depression who presented to the hospital with complaints of abdominal pain. The patient reported abdominal pain occurring over the past 2 months. Pain is occurring in the epigastric region and right upper quadrant of her abdomen. She reports the pain is severe and associated with nausea and vomiting. Pain wraps around into her back. The patient has a known history of heavy alcohol abuse and is currently at a rehabilitation facility for treatment of her alcohol abuse. She reports drinking daily liquor a quarter gallon to a half gallon. She does note some yellowing of her eyes. She previously has been told of alcoholic liver disease secondary to her alcohol abuse but is unsure if she is cirrhotic. Ultrasound on presentation showed a dilated gallbladder with a layer of sludge and wall thickening suggesting cholecystitis with fatty infiltration of the liver and hepatomegaly with no intrahepatic or extrahepatic biliary dilation noted. Laboratory evaluation significant for hemoglobin 8.8, platelet count 174,000, INR 1.5, alkaline phosphatase 215, total bilirubin 4.7, AST 220 and ALT 34 with a lipase of 348. Review of Systems REVIEW OF SYSTEMS: CONSTITUTIONAL: Denies any fevers, chills, weight change or fatigue. CARDIOVASCULAR: Denies any chest pain, palpitations high or low blood pressures RESPIRATORY: Denies any shortness of breath, hemoptysis or cough. GENITOURINARY: No dysuria or hematuria, she does report dark urine and frequency of urination. MUSCULOSKELETAL: No weakness reported. SKIN: Denies any new rashes or lesions, or pallor but does report jaundice. PSYCHIATRIC: History of anxiety, depression and alcohol abuse. NEUROLOGY: Denies headache, denies any new focal deficits. EARS/NOSE/THROAT: No recent hearing change, congestion, nasal discharge or sore throat. EYES: No pain in eyes, discharge or change in vision. GASTROINTESTINAL: As per HPI. Past Medical History Past Medical History: GERD/Reflux, Liver Disease Additional Past Medical History / Comment(s): ETOH abuse/pt is currently at [facility] and has not drank in 11 days, ETOH withdrawa ls/headaches/vomiting/tremors, frequent diarrhea, lower leg/pedal edema past 1.5 months, UTIs History of Any Multi-Drug Resistant Organisms: None Reported Past Surgical History: Orthopedic Surgery Additional Past Surgical History / Comment(s): R foot fractured calcaneous with reconstructive surgery/hardware, R femur fracture/hardware. Smoking Status: Current every day smoker - Past Family History Father Family Medical History: Coronary Artery Disease (CAD), Hyperlipidemia, Myocardial Infarction ([place]) Additional Family Medical History / Comment(s): Father at the age of 55 yrs from a [place] Mother Family Medical History: No Reported History Additional Family Medical History / Comment(s): Mother is healthy Medications and Allergies Home Medications Medication Instructions Recorded Confirmed Type Calcium/Magnesium Tab 2 tab PO TID PRN 09/28/20 09/28/20 History Chlorpheniramine Maleate 4 mg PO Q4H PRN 09/28/20 09/28/20 History [Chlor-Trimeton] Ferrous Gluconate 324 mg PO DAILY@0600 09/28/20 09/28/20 History LORazepam [Ativan] See Taper PO DIRECTED PRN 09/28/20 09/28/20 History OLANZapine [ZyPREXA] 2.5 mg PO HS 09/28/20 09/28/20 History ondansetron HCL [Zofran] 8 mg PO Q8HR PRN 09/28/20 09/28/20 History traZODone HCL 50 - 150 mg PO HS 09/28/20 09/28/20 History Allergies Allergy/AdvReac Type Severity Reaction Status Date / Time No Known Allergies Allergy Verified 09/28/20 06:58 Physical Exam Vitals: Vital Signs Temp Pulse Resp BP Pulse Ox 09/28/20 02:15 108 H 18 106/51 98 09/28/20 00:14 98.8 F 117 H 18 114/57 100 Intake and Output 09/27/20 09/28/20 09/28/20 22:59 06:59 14:59 Other: Weight 99.79 kg 99.79 kg On physical examination, patient appears comfortable in no apparent distress. HEAD: Normocephalic, atraumatic. EYES: Scleral icterus. No conjunctival injection. MOUTH: No lesions, tongue midline. NECK: Trachea midline, no gross abnormalities. CHEST: Clear to auscultation with no wheezing or rhonchi appreciated. HEART: Regular rate and rhythm. ABDOMEN: Soft, overweight and mildly to palpation. Bowel sounds are positive. No organomegaly. No guarding or rigidity. EXTREMITIES: No pedal edema. SKIN: No rashes, jaundice. NEUROLOGIC: Alert and oriented x3. No focal deficits. Results CBC & Chem 7: 09/29/20 06:44 09/29/20 06:43 Labs: Abnormal Lab Results - Last 24 Hours (Table) 09/28/20 09/28/20 09/28/20 Range/Units 01:00 01:00 01:00 RBC 2.42 L (3.80-5.40) m/uL Hgb 8.8 L (11.4-16.0) gm/dL Hct 25.3 L (34.0-46.0) % MCV 104.6 H (80.0-100.0) fL MCH 36.5 H (25.0-35.0) pg RDW 17.7 H (11.5-15.5) % Lymphocytes # 0.9 L (1.0-4.8) k/uL PT 15.0 H (9.0-12.0) sec INR 1.5 H (<1.2) APTT 34.5 H (22.0-30.0) sec Sodium (137-145) mmol/L BUN (7-17) mg/dL Glucose (74-99) mg/dL Total Bilirubin (0.2-1.3) mg/dL AST (14-36) U/L Alkaline Phosphatase (38-126) U/L Albumin (3.5-5.0) g/dL Lipase (23-300) U/L Urine Appearance Cloudy H (Clear) Urine Protein Trace H (Negative) Urine Bilirubin 1+ H (Negative) Ur Leukocyte Esterase Trace H (Negative) Urine WBC 10 H (0-5) /hpf Calcium Oxalate Crystal Few H (None) /hpf Urine Bacteria Rare H (None) /hpf Urine Mucus Few H (None) /hpf 09/28/20 Range/Units 01:00 RBC (3.80-5.40) m/uL Hgb (11.4-16.0) gm/dL Hct (34.0-46.0) % MCV (80.0-100.0) fL MCH (25.0-35.0) pg RDW (11.5-15.5) % Lymphocytes # (1.0-4.8) k/uL PT (9.0-12.0) sec INR (<1.2) APTT (22.0-30.0) sec Sodium 136 L (137-145) mmol/L BUN 6 L (7-17) mg/dL Glucose 108 H (74-99) mg/dL Total Bilirubin 4.7 H (0.2-1.3) mg/dL AST 220 H (14-36) U/L Alkaline Phosphatase 215 H (38-126) U/L Albumin 3.2 L (3.5-5.0) g/dL Lipase 348 H (23-300) U/L Urine Appearance (Clear) Urine Protein (Negative) Urine Bilirubin (Negative) Ur Leukocyte Esterase (Negative) Urine WBC (0-5) /hpf Calcium Oxalate Crystal (None) /hpf Urine Bacteria (None) /hpf Urine Mucus (None) /hpf US - abdomen: report reviewed (Ultrasound abdomen with findings of a dilated gallbladder with sludge and thickening suggestive of cholecystitis with fatty infiltration of the liver, hepatomegaly with no CBD dilation noted.) Assessment and Plan (1) Abdominal pain Narrative/Plan: 30-year-old female presenting for abdominal pain occurring over the past few months in the epigastric and right upper quadrant of her abdomen and severe in nature and wrapping into her back. Ultrasound of the abdomen with multiple findings including a dilated gallbladder with sludge and wall thickening suggestive of cholecystitis with fatty infiltration of the liver, hepatomegaly and no ductal dilation. Currently receiving treatment for cholecystitis with plan for laparoscopic cholecystectomy. Liver enzymes elevation is probably multifactorial and secondary to underlying liver disease secondary to alcohol abuse with degree of fibrosis/cirrhosis unknown. Current Visit: Yes Status: Acute Code(s): R10.9 - UNSPECIFIED ABDOMINAL PAIN SNOMED Code(s): 44258467 (2) Alcoholic liver disease Current Visit: Yes Status: Acute Code(s): K70.9 - ALCOHOLIC LIVER DISEASE, UNSPECIFIED SNOMED Code(s): 39218245 (3) Cholecystitis Current Visit: Yes Status: Acute Code(s): K81.9 - CHOLECYSTITIS, UNSPECIFIED SNOMED Code(s): 51077092 (4) Hyperbilirubinemia Current Visit: Yes Status: Acute Code(s): E80.6 - OTHER DISORDERS OF BILIRUBIN METABOLISM SNOMED Code(s): 00308587 Plan: Supportive care Clear liquid diet Surgical service is following the patient and plan is for cholecystectomy No ductal dilation to suggest biliary obstruction, elevation liver enzymes likely multifactorial and secondary to underlying chronic liver disease in the setting of alcohol abuse as well as current cholecystitis Continue broad-spectrum antibiotic therapy Continue to monitor and treat for signs or symptoms of alcohol withdrawal Thank you for allowing us to participate in the care of the patient we will co caren to follow
[2020-09-29] MEDS ORDERED: ONDANSETRON 4 MG/2 ML VIAL ONE (13:02)
[2020-09-29] MEDS ORDERED: HEPARIN SODIUM,PORCINE 5,000 UNIT/ML 1 ML VIAL ONE (13:02)
[2020-09-29] MEDS ORDERED: IV FLUID CONTINUATION 1,000 ML IV ONE (13:05)
[2020-09-29] MEDS ORDERED: DEXAMETHASONE SOD PHOSPHATE 4 MG/ML 1 ML VIAL IVP ONE (13:13)
[2020-09-29] MEDS ORDERED: ONDANSETRON 4 MG/2 ML VIAL IVP ONE (13:14)
--- NOTE | 2020-09-29 13:37 | P.PN ---
Subjective Progress Note Date: 09/29/20 Principal diagnosis: Elevated LFTs, history of alcohol abuse Should seen and examined lying in bed. She is awaiting surgery for cholecystectomy with Dr. anthony in today. She states she has upper abdominal pain, worse in the right upper quadrant. Denies any vomiting, however states she did have some nausea through the night. She is needing pain medication for her abdominal pain. Liver enzymes ar are trending down. Total bilirubin 4.0, alkaline phosphatase 159, AST 25, ALT 31 Objective - Vital Signs Vital signs: Vital Signs Temp 98.3 F 09/29/20 05:02 Pulse 111 H 09/29/20 05:02 Resp 18 09/29/20 05:02 BP 111/67 09/29/20 05:02 Pulse Ox 95 09/29/20 05:02 Intake & Output 09/28/20 09/29/20 09/29/20 18:59 06:59 18:59 Weight 99.79 kg Other: Voiding Method Toilet Toilet Toilet # Voids 1 - Exam General appearance: The patient is alert, oriented, appears in no acute distress. HET: Head is normocephalic and atraumatic. Conjunctiva pink. Sclera anicteric. Neck: Supple without lymphadenopathy. Abdomen: Soft, nontender, nondistended with bowel sounds. No guarding or rigidity. Extremities: Normal skin color and turgor. No pedal edema Skin: No rashes, no jaundice Neurological: No focal deficits. Alert and oriented 3. - Labs CBC & Chem 7: 09/29/20 06:44 09/29/20 06:43 Labs: Abnormal Lab Results - Last 24 Hours (Table) 09/29/20 09/29/20 09/29/20 Range/Units 06:43 06:43 06:44 WBC 3.2 L (3.8-10.6) k/uL RBC 2.44 L (3.80-5.40) m/uL Hgb 8.3 L (11.4-16.0) gm/dL Hct 25.7 L (34.0-46.0) % MCV 105.1 H (80.0-100.0) fL RDW 17.4 H (11.5-15.5) % Lymphocytes # 0.8 L (1.0-4.8) k/uL PT 15.5 H (9.0-12.0) sec INR 1.5 H (<1.2) Chloride 109 H (98-107) mmol/L BUN 5 L (7-17) mg/dL Calcium 8.1 L (8.4-10.2) mg/dL Total Bilirubin 4.0 H (0.2-1.3) mg/dL AST 205 H (14-36) U/L Alkaline Phosphatase 159 H (38-126) U/L Total Protein 5.3 L (6.3-8.2) g/dL Albumin 2.6 L (3.5-5.0) g/dL Microbiology - Last 24 Hours (Table) 09/28/20 02:30 Blood Culture - Preliminary Blood No Growth after 24 hours 09/28/20 02:15 Blood Culture - Preliminary Blood No Growth after 24 hours Assessment and Plan (1) Abdominal pain Narrative/Plan: 10-year-old female presenting for abdominal pain occurring over the past few mon ths in the epigastric and right upper quadrant of her abdomen and severe in nature and wrapping into her back. Ultrasound of the abdomen with multiple findings including a dilated gallbladder with sludge and wall thickening suggestive of cholecystitis with fatty infiltration of the liver, hepatomegaly and no ductal dilation. Currently receiving treatment for cholecystitis with plan for laparoscopic cholecystectomy. Liver enzymes elevation is probably multifactorial and secondary to underlying liver disease secondary to alcohol abuse with degree of fibrosis/cirrhosis unknown. Current Visit: Yes Status: Acute Code(s): R10.9 - UNSPECIFIED ABDOMINAL PAIN SNOMED Code(s): 01036620 (2) Alcoholic liver disease Current Visit: Yes Status: Acute Code(s): K70.9 - ALCOHOLIC LIVER DISEASE, UNSPECIFIED SNOMED Code(s): 80428804 (3) Cholecystitis Current Visit: Yes Status: Acute Code(s): K81.9 - CHOLECYSTITIS, UNSPECIFIED SNOMED Code(s): 39071557 (4) Hyperbilirubinemia Current Visit: Yes Status: Acute Code(s): E80.6 - OTHER DISORDERS OF BILIRUBIN METABOLISM SNOMED Code(s): 56502866 Plan: Supportive care Diet per surgical services recommendation Surgical service is following the patient and plan is for cholecystectomy today No ductal dilation to suggest biliary obstruction, elevation liver enzymes likely multifactorial and secondary to underlying chronic liver disease in the setting of alcohol abuse as well as current cholecystitis Continue broad-spectrum antibiotic therapy Continue to monitor and treat for signs or symptoms of alcohol withdrawal Thank you for allowing us to participate in the care of the patient we will continue to follow Dr. Paul I agree with the dictator's note, documented as a scribe by Karen Lozoya.
[2020-09-29] MEDS ORDERED: PROPOFOL 10 MG/ML 20 ML VIAL IV ONE (14:05)
[2020-09-29] MEDS ORDERED: SUCCINYLCHOLINE CHLORIDE 100 MG/5 ML SYR IV ONE (14:05)
[2020-09-29] MEDS ORDERED: MIDAZOLAM 2 MG/2 ML VIAL ONE (14:05)
[2020-09-29] MEDS ORDERED: GLYCOPYRROLATE 0.2 MG/ML 2 ML VIAL ONE (14:05)
[2020-09-29] MEDS ORDERED: ROCURONIUM 10 MG/ML (5 ML VIAL) IV ONE (14:05)
[2020-09-29] MEDS ORDERED: LIDOCAINE 1% INJ 10MG/ML (20 ML MDV) ONE (14:05)
[2020-09-29] MEDS ORDERED: fentaNYL (PF) 50 MCG/ML 2 ML AMP ONE (14:05)
[2020-09-29] MEDS ORDERED: NEOSTIGMINE 1 MG/ML 10 ML VIAL ONE (14:05)
[2020-09-29] MEDS ORDERED: BUPIVACAINE (PF) 0.25% 30 ML VIAL SQ ONE (14:44)
--- NOTE | 2020-09-29 15:08 | P.OP ---
Date of Procedure: 09/29/20 Preoperative Diagnosis: Cholecystitis Postoperative Diagnosis: Cholecystitis Procedure(s) Performed: Arthroscopic cholecystectomy Anesthesia: ANDREW Surgeon: Carlos Engle Estimated Blood Loss (ml): 10 Pathology: other (Gallbladder) Condition: stable Disposition: PACU Description of Procedure: The patient was placed on the operating table. The patient received a general endotracheal tube anesthesia. The patients abdomen was prepped and draped in the usual sterile fashion. Through an infraumbilical stab incision, the fascia of the anterior abdominal wall was grasped with a pair of Kochers and then the Veress needle was placed in the peritoneal cavity. Position of the Veress needle was confirmed with positive drop test. The abdomen was then insufflated. After adequate insufflation, the 10 mm trocar was placed in the peritoneal cavity. Following this the laparoscope was placed in the peritoneal cavity. The patient was placed in the head-up, right side up position and then a 5 mm trocar was placed in the right lateral and right subcostal position under direct visualization. A 8 mm trocar was placed in the epigastric position. The gallbladder was grasped in the fundus and infundibulum. Traction on the gallbladder was placed in the lateral and the cephalad positions. The triangle of Calot was visualized.. The cystic duct was bluntly dissected until the union of the cystic duct and common bile duct was seen. A critical view of safety was achieved. The cystic duct was then divided and sealed with the Harmonic scissors. A PDS Endoloop was then placed throughout the cystic duct stump. The cystic artery divided and sealed with the Harmonic scissors. The gallbladder was then removed from the liver bed using Harmonic scissors. The gallbladder was then extracted through the epigastric port site. Operative field was checked for any bleeding spots and Harmonic scissors was used to coagulate the liver bed. The abdomen was irrigated. The trocars were removed. The skin was closed using interrupted 3-0 Vicryl suture. Dermabond dressing were applied. The patient tolerated the procedure well.
[2020-09-29] MEDS ORDERED: LACTATED RINGERS 1,000 ML IV ONE (15:10)
[2020-09-29 15:32] VITALS: BMI 38.9
[2020-09-29] MEDS ORDERED: HYDROmorphone 0.5 MG/0.5 ML SYRINGE IVP ONE (15:37)
[2020-09-29] MEDS: OLANZapine 2.5 MG TAB PO SCH (22:34)
--- NOTE | 2020-09-29 23:20 | P.PN ---
Subjective Progress Note Date: 09/29/20 Ms. Nickerson is a 30-year-old female with a past medical history of alcohol use disorder, cirrhosis, anxiety and depression, nicotine dependence coming into the emergency Department with a chief complaint of epigastric and right upper quadrant abdominal pain for the past 1-2 days. Patient states that she has been having the abdominal pain for the past 2 months but for the past couple of days has become more severe. She states that the pain radiates all around her abdomen to the back and has been associated with nausea and some vomiting. Patient states she has history of alcohol use but quit 11 days back and is undergoing rehabilitation. She is at [place] for detox. She also complained of yellowish discoloration of her eyes and dark urine for the past couple of months. She said when she was drinking she was drinking almost 1/5 of vodka every day. Patient has history of anxiety and depression. She denies having any suicidal ideation or homicidal ideation currently. Patient denied having any chest pain or difficulty in breathing. No palpitations, syncopal episodes. She denies having any weakness of her extremities. No dysuria or hematuria. No chronic low back pain. Patient denied having any fevers chills or rigors. No recent use of antibiotics. No history of sick contacts. In the ER had an ultrasound of the abdomen that was showing full E distended gallbladder with sludge and mild gallbladder wall thickening suggestive of cholecystitis. Fatty infiltration of the liver and hepatomegaly with liver measuring 20 cm. EKG done in the ER showing sinus tachycardia. Chest x-ray slight blunting of the left costophrenic angle suggesting small left pleural effusion and questionable left basilar infiltrate. On reviewing his labs white count of 4.4, hemoglobin 8.8, MCV 104.6, platelets 174. PT 15, INR 1.5. Sodium 136, progression And 11 Affect, Bicarbonate 24, BUN 6, Creatinine 0.55. Lipase 348, AST 220, AST 34, Total Bilirubin 4.7. On 09/29/2020 -patient was seen and examined at the bedside. She is boarded for laparoscopic cholecystectomy for this afternoon. Patient states that her abdominal pain is under better control with the pain medications. She denies having any nausea vomiting or diarrhea. Patient denies having any tremors. No chest pain or palpitations. No dysuria or hematuria. On reviewing the vitals T-max of 98.2, heart rate between 100s to 110s, respiratory rate 18-20, blood pressure 111 x 67. On reviewing her labs white count of 3.2, hemoglobin 8.3, platelets 152. INR of 1.5. Sodium 139, potassium 3.5, chloride 109, bicarb 25, BUN 6, creatinine 0.59. Albumin 2.6. Active Medications Piperacillin Sod/Tazobactam (Sod 3.375 gm/ Sodium Chloride) 100 mls @ 25 mls/hr IVPB Q8H [facility] Last Admin: 09/29/20 18:20 Dose: 25 mls/hr Documented by: Sodium Chloride (Saline 0.9%) 1,000 mls @ 75 mls/hr IV .[id number] [facility] Last Admin: 09/29/20 18:23 Dose: 75 mls/hr Documented by: Ketorolac Tromethamine (Ketorolac 15 Mg/Ml 1 Ml Vial) 15 mg IVP Q6HR PRN PRN Reason: Pain Stop: 10/01/20 12:25 Last Admin: 09/29/20 18:20 Dose: 15 mg Documented by: Naloxone HCl (Naloxone 0.4 Mg/Ml 1 Ml Vial) 0.2 mg IV Q2M PRN PRN Reason: Opioid Reversal Nicotine (Nicotine 14mg/24hr Patch) 1 patch TRANSDERM DAILY [facility] Last Admin: 09/29/20 08:42 Dose: 1 patch Documented by: Olanzapine (Olanzapine 2.5 Mg Tab) 2.5 mg PO HS [facility] Last Admin: 09/29/20 22:34 Dose: 2.5 mg Documented by: Objective - Vital Signs Vital signs: Vital Signs Temp 98.3 F 09/29/20 05:02 Pulse 111 H 09/29/20 05:02 Resp 18 09/29/20 05:02 BP 111/67 09/29/20 05:02 Pulse Ox 95 09/29/20 05:02 Intake & Output 09/28/20 09/29/20 09/29/20 18:59 06:59 18:59 Weight 99.79 kg Other: Voiding Method Toilet Toilet Toilet # Voids 1 - Exam PHYSICAL EXAMINATION: GENERAL: The patient is alert and oriented x3, not in any acute distress. Well developed, well nourished. HEENT: Pupils are round and equally reacting to light. EOMI. No scleral icterus. Positive for icterus CARDIOVASCULAR: S1 and S2 present. No murmurs, rubs, or gallops. PULMONARY: Chest is clear to auscultation, no wheezing or crackles. ABDOMEN: Abdomen is soft. Mild tenderness in the epigastric and right upper quadrant. Normal bowel sounds. Organomegaly difficult to appreciate due to obese body habitus MUSCULOSKELETAL: No joint swelling or deformity. EXTREMITIES: No cyanosis, clubbing, or pedal edema. NEUROLOGICAL: Gross neurological examination did not reveal any focal deficits. SKIN: No rashes. - Labs CBC & Chem 7: 09/29/20 06:44 09/29/20 06:43 Labs: Abnormal Lab Results - Last 24 Hours (Table) 09/29/20 09/29/20 09/29/20 Range/Units 06:43 06:43 06:44 WBC 3.2 L (3.8-10.6) k/uL RBC 2.44 L (3.80-5.40) m/uL Hgb 8.3 L (11.4-16.0) gm/dL Hct 25.7 L (34.0-46.0) % MCV 105.1 H (80.0-100.0) fL RDW 17.4 H (11.5-15.5) % Lymphocytes # 0.8 L (1.0-4.8) k/uL PT 15.5 H (9.0-12.0) sec INR 1.5 H (<1.2) Chloride 109 H (98-107) mmol/L BUN 5 L (7-17) mg/dL Calcium 8.1 L (8.4-10.2) mg/dL Total Bilirubin 4.0 H (0.2-1.3) mg/dL AST 205 H (14-36) U/L Alkaline Phosphatase 159 H (38-126) U/L Total Protein 5.3 L (6.3-8.2) g/dL Albumin 2.6 L (3.5-5.0) g/dL Microbiology - Last 24 Hours (Table) 09/28/20 02:30 Blood Culture - Preliminary Blood No Growth after 24 hours 09/28/20 02:15 Blood Culture - Preliminary Blood No Growth after 24 hours Assessment and Plan Assessment: ASSESSMENT Acute cholecystitis -significant for biliary sludge Transaminits Hyperbilirubinemia History of alcohol abuse History of liver cirrhosis Macrocytic anemia Elevated INR PLAN: Patient has been started on IV antibiotics in the form of Zosyn which will be continued for acute cholecystitis. She is board for laparoscopic chol ecystectomy for this afternoon by Dr. Engle. Continue with IV fluids. As the patient's INR is 1.5, will give her a dose of vitamin K. Discussed at length about the long-term complications of alcohol use, encouraged her to continue quitting. Further recommendations to follow depending on the progress of the patient.
[2020-09-30] MEDS: KETOROLAC 15 MG/ML 1 ML VIAL IVP PRN ×2 (01:02→07:28)
[2020-09-30] MEDS: PIPERACILLIN-TAZOBACTAM 3.375 GM in SODIUM CHLORIDE 0.9% 100 ML IVPB SCH ×3 (02:05→15:42)
[2020-09-30] MEDS: SODIUM CHLORIDE 0.9% 1,000 ML IV SCH (07:38)
[2020-09-30] MEDS: NICOTINE 14MG/24HR PATCH TRANSDERM SCH (08:48)
[2020-09-30] MEDS ORDERED: ENOXAPARIN 40 MG/0.4 ML SYRINGE SQ STA (10:48)
[2020-09-30] MEDS ORDERED: ENOXAPARIN 40 MG/0.4 ML SYRINGE SQ SCH (11:00)
[2020-09-30 11:02] LABS: HCT 28.3 % (37.2-46.3); HGB 8.7 g/dL (12.0-15.0); MCH 33.5 pg (27.0-32.0); MCHC 30.7 g/dL (32.0-37.0); MCV 108.8 fL (80.0-97.0); Mean Platelet Volume 11.6 fL (9.5-12.2); Platelet Count 177 X 10*3/uL (140-440); RDW 16.8 % (11.5-14.5); WBC 5.67 X 10*3/uL (4.50-10.00)
[2020-09-30] MEDS ORDERED: traMADol 50 MG TAB PO PRN (11:49)
[2020-09-30 11:51] LABS: Basophils # (A) 0.01 X 10*3/uL (0.00-0.10); Basophils % (A) 0.2 %; Eosinophils # (A) 0 X 10*3/uL (0.04-0.35); Eosinophils % (A) 0 %; Lymphocytes # (A) 0.72 X 10*3/uL (0.90-5.00); Lymphocytes % (A) 12.7 %; Macrocytosis (M) 2+; Monocytes # (A) 0.33 X 10*3/uL (0.20-1.00); Monocytes % (A) 5.8 %; Neutrophils # (A) 4.59 X 10*3/uL (1.80-7.70); Neutrophils % (A) 80.9 %
--- NOTE | 2020-09-30 11:58 | P.PN ---
Subjective Progress Note Date: 09/30/20 CHIEF COMPLAINT: Abdominal pain HISTORY OF PRESENT ILLNESS: Patient is status post laparoscopic cholecystectomy for acute cholecystitis. Patient reports that her pain is controlled. She denies any nausea or vomiting. She is passing gas. Afebrile. Slightly tachycardic with heart rate of 105. WBC 5.67 Hgb 8.7 platelets 177 PHYSICAL EXAM: VITAL SIGNS: Reviewed. GENERAL: Well-developed in no acute distress. HEENT: No sclera icterus. Extraocular movements grossly intact. Moist buccal mucosa. Head is atraumatic, normocephalic. ABDOMEN: Soft. Nondistended. Incision sites clean dry and intact NEUROLOGIC: Alert and oriented. Cranial nerves II through XII grossly intact. ASSESSMENT: 1. Acute cholecystitis status post laparoscopic cholecystectomy PLAN: -Patient is stable from surgical standpoint for discharge when cleared by medicine service -Continue regular diet -Added Ultram as needed for pain -Encouraged patient to use incentive spirometer and to ambulate Physician Welding Machine Assembler note has been reviewed by physician. Signing provider agrees with the documented findings, assessment, and plan of care. Objective - Vital Signs Vital signs: Vital Signs Temp 97.9 F 09/30/20 02:00 Pulse 105 H 09/30/20 02:00 Resp 16 09/30/20 02:00 BP 119/74 09/30/20 02:00 Pulse Ox 93 L 09/30/20 02:00 Intake & Output 09/29/20 09/30/20 09/30/20 18:59 06:59 18:59 Intake Total 2350 1000 Output Total 10 Balance 2340 1000 Weight 99.79 kg Intake: IV 1450 Intake, IV Titration 900 Amount Sodium Chloride 0.9% 1, 900 000 ml @ 75 mls/hr IV . [id number] [facility] Rx#:[id number] Oral 1000 Output: Estimated Blood Loss 10 Other: Voiding Method Toilet Toilet # Voids 2 - Labs CBC & Chem 7: 09/30/20 06:42 09/29/20 06:43 Labs: Abnormal Lab Results - Last 24 Hours (Table) 09/30/20 Range/Units 06:42 RBC 2.60 L (4.10-5.20) X 10*6/uL Hgb 8.7 L (12.0-15.0) g/dL Hct 28.3 L (37.2-46.3) % MCV 108.8 H (80.0-97.0) fL MCH 33.5 H (27.0-32.0) pg MCHC 30.7 L (32.0-37.0) g/dL RDW 16.8 H (11.5-14.5) % Lymphocytes # 0.72 L (0.90-5.00) X 10*3/uL Eosinophils # 0 L (0.04-0.35) X 10*3/uL Microbiology - Last 24 Hours (Table) 09/28/20 02:30 Blood Culture - Preliminary Blood No Growth after 48 hours 09/28/20 02:15 Blood Culture - Preliminary Blood No Growth after 48 hours
[2020-09-30 12:14] VITALS: BP 119/81; PULSE 104; RESP 17; TEMP 98.1
--- NOTE | 2020-09-30 12:51 | P.PN ---
Subjective Progress Note Date: 09/30/20 Principal diagnosis: Elevated LFTs, history of alcohol abuse Patient is seen and examined sitting up in the bedside chair. She is status postcholecystectomy yesterday for cholecystitis. She states she is doing better today. She denies any nausea or vomiting. She states she just has surgical pain. No acute changes through the night. Repeat LFTs are pending. Objective - Vital Signs Vital signs: Vital Signs Temp 98.1 F 09/30/20 12:13 Pulse 104 H 09/30/20 12:13 Resp 17 09/30/20 12:13 BP 119/81 09/30/20 12:13 Pulse Ox 99 09/30/20 12:13 Intake & Output 09/29/20 09/30/20 09/30/20 18:59 06:59 18:59 Intake Total 2350 1000 Output Total 10 Balance 2340 1000 Weight 99.79 kg Intake: IV 1450 Intake, IV Titration 900 Amount Sodium Chloride 0.9% 1, 900 000 ml @ 75 mls/hr IV . [id number] [facility] Rx#:[id number] Oral 1000 Output: Estimated Blood Loss 10 Other: Voiding Method Toilet Toilet # Voids 2 - Exam General appearance: The patient is alert, oriented, appears in no acute distress. HET: Head is normocephalic and atraumatic. Conjunctiva pink. Sclera anicteric. Neck: Supple without lymphadenopathy. Abdomen: Soft, surgical incisions well approximated, clean dry and intact, nondistended with bowel sounds. No guarding or rigidity. Extremities: Normal skin color and turgor. No pedal edema Skin: No rashes, no jaundice Neurological: No focal deficits. Alert and oriented 3. - Labs CBC & Chem 7: 09/30/20 06:42 09/29/20 06:43 Labs: Abnormal Lab Results - Last 24 Hours (Table) 09/30/20 Range/Units 06:42 RBC 2.60 L (4.10-5.20) X 10*6/uL Hgb 8.7 L (12.0-15.0) g/dL Hct 28.3 L (37.2-46.3) % MCV 108.8 H (80.0-97.0) fL MCH 33.5 H (27.0-32.0) pg MCHC 30.7 L (32.0-37.0) g/dL RDW 16.8 H (11.5-14.5) % Lymphocytes # 0.72 L (0.90-5.00) X 10*3/uL Eosinophils # 0 L (0.04-0.35) X 10*3/uL Microbiology - Last 24 Hours (Table) 09/28/20 02:30 Blood Culture - Preliminary Blood No Growth after 48 hours 09/28/20 02:15 Blood Culture - Preliminary Blood No Growth after 48 hours Assessment and Plan (1) Abdominal pain Narrative/Plan: 10-year-old female presenting for abdominal pain occurring over the past few months in the epigastric and right upper quadrant of her abdomen and severe in nature and wrapping into her back. Ultrasound of the abdomen with multiple findings including a dilated gallbladder with sludge and wall thickening suggestive of cholecystitis with fatty infiltration of the liver, hepatomegaly and no ductal dilation. Currently receiving treatment for cholecystitis with plan for laparoscopic cholecystectomy. Liver enzymes elevation is probably multifactorial and secondary to underlying liver disease secondary to alcohol abuse with degree of fibrosis/cirrhosis unknown. Current Visit: Yes Status: Acute Code(s): R10.9 - UNSPECIFIED ABDOMINAL PAIN SNOMED Code(s): 49362114 (2) Alcoholic liver disease Current Visit: Yes Status: Acute Code(s): K70.9 - ALCOHOLIC LIVER DISEASE, UNSPECIFIED SNOMED Code(s): 32551621 (3) Cholecystitis Narrative/Plan: Pepper is postop day #1 for cholecystectomy Current Visit: Yes Status: Acute Code(s): K81.9 - CHOLECYSTITIS, UNSPECIFIED SNOMED Code(s): 44162020 (4) Hyperbilirubinemia Narrative/Plan: Improving Current Visit: Yes Status: Acute Code(s): E80.6 - OTHER DISORDERS OF BILIRUBIN METABOLISM SNOMED Code(s): 78083100 Plan: 1. Supportive care 2. Diet per surgical services recommendation 3. Patient is status post cholecystectomy 4. No ductal dilation to suggest biliary obstruction, elevation of liver enzymes likely multifactorial and secondary to underlying chronic liver disease in the setting of alcohol abuse as well as current cholecystitis 5. Alcohol cessation Discussion was had with patient importance of following up with gastroenterology after rehab. Patient states she will be living on the left side of the pending sale to [facility] and will follow-up with one there. We'll also provide local gastroenterology office number with follow-up. Thank you for allowing us to participate in the care of the patient, we will sign off at this time Dr. Paul I agree with the dictator's note, documented as a scribe by Karen Lozoya.
--- NOTE | 2020-09-30 16:28 | P.DS ---
Providers Date of admission: 09/28/20 02:26 Expected date of discharge: 09/30/20 Attending physician: Karrie Magallon Consults: 09/28/20 12:25 Consult Physician Routine Consulting Provider: Joann Huddleston Consult Reason/Comments: liver failure, hyperbilirubinemia Do you want consulting provider notified?: Yes 09/28/20 12:27 Consult Physician Routine Consulting Provider: Carlos Engle Consult Reason/Comments: cholecystitis Do you want consulting provider notified?: Yes Primary care physician: Physician Nonstaff Hospital Course: Final diagnosis Acute cholecystitis -significant for biliary sludge status post cholecystectomy Transaminits Hyperbilirubinemia History of alcohol abuse History of liver cirrhosis Macrocytic anemia Elevated INR Discharge disposition Patient is being discharged in a stable condition with guarded prognosis to [place] for continued alcohol rehab. Patient will follow-up with primary care provider when she is settled as she is moving after rehab in the outpatient setting upon discharge. Patient is also follow-up with surgery and GI in the outpatient setting. Total time taken is greater than 35 minutes. Hospital course Ms. Nickerson is a 30-year-old female with a past medical history of alcohol use disorder, cirrhosis, anxiety and depression, nicotine dependence coming into the emergency Department with a chief complaint of epigastric and right upper quadrant abdominal pain for the past 1-2 days. Patient states that she has been having the abdominal pain for the past 2 months but for the past couple of days has become more severe. She states that the pain radiates all around her abdomen to the back and has been associated with nausea and some vomiting. Patient states she has history of alcohol use but quit 11 days back and is undergoing rehabilitation. She is at [place] for detox. She also complained of yellowish discoloration of her eyes and dark urine for the past couple of months. She said when she was drinking she was drinking almost 1/5 of vodka every day. Patient has history of anxiety and depression. She denies having any suicidal ideation or homicidal ideation currently. Patient denied having any chest pain or difficulty in breathing. No palpitations, syncopal episodes. She denies having any weakness of her extremities. No dysuria or hematuria. No chronic low back pain. Patient denied having any fevers chills or rigors. No recent use of antibiotics. No history of sick contacts. In the ER Patient had an ultrasound of the abdomen that was showing full E distended gallbladder with sludge and mild gallbladder wall thickening suggestive of cholecystitis. Fatty infiltration of the liver and hepatomegaly with liver measuring 20 cm. EKG done in the ER showing sinus tachycardia. Chest x-ray slight blunting of the left costophrenic angle suggesting small left pleural effusion and questionable left basilar infiltrate. On reviewing his labs white count of 4.4, hemoglobin 8.8, MCV 104.6, platelets 174. PT 15, INR 1.5. Sodium 136, progression And 11 Affect, Bicarbonate 24, BUN 6, Creatinine 0.55. Lipase 348, AST 220, AST 34, Total Bilirubin 4.7. On 09/29/2020 -patient was seen and examined at the bedside. She is boarded for laparoscopic cholecystectomy for this afternoon. Patient states that her abdominal pain is under better control with the pain medications. She denies having any nausea vomiting or diarrhea. Patient denies having any tremors. No chest pain or palpitations. No dysuria or hematuria. On reviewing the vitals T-max of 98.2, heart rate between 100s to 110s, respiratory rate 18-20, blood pressure 111 x 67. On reviewing her labs white count of 3.2, hemoglobin 8.3, platelets 152. INR of 1.5. Sodium 139, potassium 3.5, chloride 109, bicarb 25, BUN 6, creatinine 0.59. Albumin 2.6. 09/30/2020 Patient is seen and evaluated in follow-up this morning status post cholecystectomy with no acute overnight issues. Continues to have tenderness noted at the surgical site and is tolerating diet with no reports of nausea or vomiting noted. She is passing gas although denies bowel movement at this time. Patient was also being seen and evaluated by GI following liver functions and patient will be following up in the outpatient setting with gastroenterology in the [facility] or she is moving. She also instructed to follow-up with surgery in the outpatient setting. Patient heart rate slightly elevated in the 100s currently 106 an EKG was done showing sinus tachycardia and patient is asymptomatic. She has not required IV Ativan for any form of withdrawal. Patient was at rehab and will be returning to [place] rehab for alcohol abuse. Patient instructed to avoid all alcohol intake. Currently no reports of chest pain, shortness of breath, or palpitations. Patient is afebrile. No reports of nausea or vomiting and patient is tolerating diet. Patient will be going to [place] today. On exam vital signs are stable. Temp is 98.1F, pulse is 104, respirations are 17, blood pressure is 119/81, oxygen saturation is 99% on room air. Cardio S1, S2 are muffled. Respiratory system shows diminished breath sounds at the bases with no wheezing or rhonchi noted. Abdomen is soft mildly tender status post surgery. Nervous system shows no focal deficits. Please refer to medication reconciliation sheet for a list of medications. Patient Condition at Discharge: Stable Plan - Discharge Summary Discharge Rx Participant: No New Discharge Prescriptions: New traMADol HCl [Ultram] 50 mg PO TID PRN #12 tab PRN Reason: Pain Continue Chlorpheniramine Maleate [Chlor-Trimeton] 4 mg PO Q4H PRN PRN Reason: Allergy Symptoms ondansetron HCL [Zofran] 8 mg PO Q8HR PRN PRN Reason: Nausea And Vomiting OLANZapine [ZyPREXA] 2.5 mg PO HS LORazepam [Ativan] See Taper PO DIRECTED PRN PRN Reason: Anxiety traZODone HCL 50 - 150 mg PO HS Calcium/Magnesium Tab 2 tab PO TID PRN PRN Reason: CRAMPS Ferrous Gluconate 324 mg PO DAILY@0600 Discharge Medication List Calcium/Magnesium Tab 2 tab PO TID PRN 09/28/20 [History] Chlorpheniramine Maleate [Chlor-Trimeton] 4 mg PO Q4H PRN 09/28/20 [History] Ferrous Gluconate 324 mg PO DAILY@0600 09/28/20 [History] LORazepam [Ativan] See Taper PO DIRECTED PRN 09/28/20 [History] OLANZapine [ZyPREXA] 2.5 mg PO HS 09/28/20 [History] ondansetron HCL [Zofran] 8 mg PO Q8HR PRN 09/28/20 [History] traZODone HCL 50 - 150 mg PO HS 09/28/20 [History] traMADol HCl [Ultram] 50 mg PO TID PRN #12 tab 09/30/20 [Rx] Follow up Appointment(s)/Referral(s): Nonstaff,Physician [Primary Care Provider] - 1-2 days Saravanan Paul MD [STAFF PHYSICIAN] - 2 Weeks Carlos Engle MD [STAFF PHYSICIAN] - 1 Week Activity/Diet/Wound Care/Special Instructions: Patient is going to [place] Activity as tolerated Continue regular diet Follow-up with surgery outpatient Follow-up with GI in the outpatient setting Avoid all alcohol intake Discharge Disposition: OTHER INSTITUTION NOT DEFINED
[2020-10-01 05:38] LABS: African American GFR (CKD) 151.6 (60.0-200.0); Calcium 8.5 mg/dL (8.7-10.3); Non-African American GFR(CKD) 130.8 (60.0-200.0); Potassium 4.4 mmol/L (3.5-5.5); Total Bilirubin 4.7 mg/dL (0.3-1.2)
== END 2020-09-30 17:40 | DRG 419 ==
LOC: EC 00:09 → 5NMEDONC 02:26
PROVIDERS: ADMIT Hospitalist; ATTEND Hospitalist
PROC: 0FT44ZZ Resection of Gallbladder, Percutaneous Endoscopic Approach (ICD-10-PCS; principal; 2020-09-29 16:55)
DX: K81.0 Acute cholecystitis (principal); K70.0 Alcoholic fatty liver; K70.30 Alcoholic cirrhosis of liver without ascites; F41.9 Anxiety disorder, unspecified; F32.9 Major depressive disorder, single episode, unspecified; F17.210 Nicotine dependence, cigarettes, uncomplicated; K21.9 Gastro-esophageal reflux disease without esophagitis; D53.9 Nutritional anemia, unspecified; E66.9 Obesity, unspecified; Z20.822 Contact with and (suspected) exposure to COVID-19; F10.10 Alcohol abuse, uncomplicated; Z71.3 Dietary counseling and surveillance; Z68.39 Body mass index [BMI] 39.0-39.9, adult; Z79.899 Other long term (current) drug therapy; Z87.440 Personal history of urinary (tract) infections; Z98.890 Other specified postprocedural states; Z87.81 Personal history of (healed) traumatic fracture; Z82.49 Family history of ischemic heart disease and other diseases of the circulatory system; Z83.438 Family history of other disorder of lipoprotein metabolism and other lipidemia
CPT/HCPCS: 36415; 71046; 76705; 80048; 80053; 80074; 81001; 81025; 82150; 82247; 83605; 83690; 83735; 83880; 84075; 84450; 84460; 84484; 85025; 85610; 85730; 87040; 87635; 88304; 93005; 99285